=== PATIENT | female | born 2000 | race Caucasian/White ===

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

== ENCOUNTER 2023-06-02 19:02 | Emergency (ER) | payer SELFPAY ==
[2023-06-02 19:07] VITALS: BP 115/69; PULSE 64; RESP 16; TEMP 37.2; O2SAT 99; BMI 18.2
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
== END 2023-06-02 19:17 | disposition home or self-care (01) ==
LOC: HO.ED 19:14
PROVIDERS: Emergency Provider Student in an Organized Health Care Education/Training Program; PCP Internal Medicine
DX: Z04.1 Encounter for examination and observation following transport accident (principal); M54.50 Low back pain, unspecified
CPT/HCPCS: 99281; 99283

== ENCOUNTER 2024-03-02 02:09 | Emergency (ER) | payer OTHER, SELFPAY ==
--- NOTE | ~2024-03-02 | CT_ITS ---
EXAMINATION: CT ABDOMEN AND PELVIS WITHOUT CONTRAST CLINICAL INFORMATION: Left flank pain. COMPARISON: None available. TECHNIQUE: Multidetector volumetric imaging was performed from the superior aspect of the liver through the pubic symphysis. Sagittal and coronal reformatted images were obtained on the technologist's workstation. This CT examination was performed using dose optimization techniques as appropriate, variously including the following: *Automated exposure control *Adjustment of mA and/or kV according to patient size (this includes techniques or standardized protocols for targeted exams where dose is matched to indication/reason for exam; i.e. extremities or head) *Use of iterative reconstruction technique DLP: 283 mGy-cm FINDINGS: LUNG BASES: The visualized lung bases are unremarkable. LIVER, GALLBLADDER, AND BILIARY TREE: The liver is normal in size, shape, and attenuation. No focal hepatic lesion or biliary ductal dilatation is present. The gallbladder is unremarkable with no evidence of radiopaque gallstones, gallbladder wall thickening, or obvious pericholecystic inflammatory changes. PANCREAS: Unremarkable. SPLEEN: Unremarkable. ADRENAL GLANDS: Unremarkable. KIDNEYS AND URETERS: Left collecting system: Two (2) vague punctate 1 mm densities are present in the interpolar segment of the left kidney and are suspicious for renal calculi. No left hydronephrosis identified. Minimal reticulation of the left perinephric fat is present. No left-sided ureteral calculi visualized. Right collecting system: A 2 mm x 3 mm calculus is present in the interpolar segment of the right kidney. A 2 mm punctate calculus is present in the inferior right renal pelvis. No right-sided hydronephrosis or perinephric inflammatory changes noted. No right-sided ureterectasis. BLADDER: Decompressed. GASTROINTESTINAL TRACT: The appendix is not visualized and may be obscured from visualization by a paucity of retroperitoneal fat and close approximation of the cecum to adjacent structures within the pelvis. No pericecal inflammatory changes noted. Normal appearance of the terminal ileum. No free intraperitoneal fluid or gas collections identified. ABDOMINAL WALL: No significant hernia is appreciated. LYMPH NODES: Normal. VASCULAR: Unremarkable. PELVIC VISCERA: Unremarkable. OSSEOUS STRUCTURES: A transitional vertebral body is present at the lumbosacral junction may represent L5 with partial bilateral sacralization. CT/CT abdomen pelvis wo IV con IMPRESSION: 1. Mild left perinephric inflammatory changes. No left-sided obstructing urolithiasis. Two (2) 1 mm punctate nonobstructing calculi are present within the left renal pelvis. The left perinephric inflammatory changes may be secondary to a recently passed renal calculus. 2. Punctate nonobstructing calculi within the right renal pelvis, the largest measuring 2 mm x 3 mm. No right-sided hydronephrosis. 3. The appendix is not visualized and may be obscured from visualization by a paucity of retroperitoneal fat and close approximation of the cecum to adjacent structures within the pelvis. No pericecal inflammatory changes noted. Normal appearance of the terminal ileum. 4. Transitional vertebral body at the lumbosacral junction which may represent L5 with partial bilateral sacralization. Fleischner guidelines were followed.
[2024-03-02 03:06] VITALS: BP 126/88; PULSE 77; RESP 16; TEMP 36.9; O2SAT 99; BMI 19.9
[2024-03-02 03:44] LABS: Appearance Urine Turbid; Color Urine Orange; Glucose Urine UA Negative (Negative); Leukocyte Esterase Urine Small (1+) (Negative); Nitrite Urine Negative (Negative); PH 5.5 (5.0-9.0); Specific Gravity - Urine 1.015 (1.005-1.025); UMIC TRIGGER UACC YES; Urine Blood Large (3+) (Negative); Urine Ketones Negative (Negative); Urine Protein 30 (1+) mg/dL (Neg-Trace)
[2024-03-02 03:45] LABS: UPreg QC Valid YES; Urine Pregnancy NEGATIVE (NEGATIVE)
--- NOTE | 2024-03-02 03:45 | MHC.EDTECH ---
Patient was brought into triage area,urine sample collected and sent to lab.
[2024-03-02 03:52] LABS: Bacteria Urine None Seen (None Seen); Hyaline Casts Urine >20 /LPF (0-2); Other Crystals Urine Present; RBC Urine >20 /HPF (0-2); UACC Culture Trigger YES
[2024-03-02 06:19] VITALS: BP 139/87; PULSE 76; RESP 16; TEMP 36.5; O2SAT 100
[2024-03-02 06:22] LABS: MANUAL DIFF FLAG NO
[2024-03-02 06:24] LABS: Basophils Percent Auto 0.2 % (0-2); Eosinophils Percent Auto 0.2 % (0-4); Hematocrit 36.2 % (37.0-47.0); Hemoglobin 11.8 g/dl (12.0-16.0); Imm Gran Abs Auto 0.04 X10*3/uL (0.00-0.03); Imm Gran Pct Auto 0.4 % (0.0-0.4); Lymphocytes Absolute Auto 1.2 X10*3/uL (1.2-4.9); Lymphocytes Percent Auto 11.4 % (20-40); Mean Corpuscular HGB Conc 32.6 g/dl (31.0-35.0); Mean Corpuscular Hemoglobin 27.2 pg (27.0-33.0); Mean Corpuscular Volume 83.4 fL (80.0-98.0); Mean Platelet Volume 10.2 fL (9.4-12.3); Monocytes Absolute Auto 0.7 X10*3/uL (0.1-1.2); Monocytes Percent Auto 6.4 % (2-11); Neutrophils Absolute Auto 8.7 x10*3/uL (2.0-8.3); Neutrophils Percent Auto 81.4 % (45-73); Platelet Count 234 X10*3/uL (160-400); Red Blood Count 4.34 X10*6/uL (4.20-5.50); White Blood Count 10.7 X10*3/uL (4.8-10.8)
[2024-03-02 06:35] LABS: Anion Gap 14 (12-20); Blood Urea Nitrogen 16 mg/dL (9-16); Carbon Dioxide 22 mmol/L (22-29); Chloride 110 mmol/L (96-108); Creatinine Clr Calc Pharmacy 70.8; Estimated Glomerular Filt Rate > 60; Glucose Random 97 mg/dL (60-115); Potassium 3.9 mmol/L (3.3-5.1); Sodium 142 mmol/L (135-145)
--- NOTE | 2024-03-02 06:49 | ED.ABDPAIN ---
HPI - Abdominal Pain General Chief Complaint: Back Pain/Injury Stated Complaint: left side back pain Time Seen by Provider: 03/02/24 05:46 Source: patient Mode of arrival: ambulatory Limitations: no limitations History of Present Illness ED Provider: ANN MARIE ZAMAN narrative: 23 yo female no sig PMH here with c/o L flank pain starting at 7pm abrupt onset atraumatic no n/v fevers able to urinate. This has never happened before cannot get comfortable. MD elicited complaint: flank pain Pertinent past history: none Onset (ago): hour(s) (7pm) Pain Consistency: constant Location: L flank Severity: moderate Quality: stabbing Radiation: none Migration to: no migration Exacerbating factors: nothing Relieving factors: nothing Associated symptoms: denies other symptoms Related Data Previous Rx's ?Medication ?Instructions ?Recorded norethindrone acetate 1.5 1 tab PO DAILY 28 days #28 tabs 06/16/20 mg-ethinyl estradiol 30 mcg tablet (Microgestin) cyclobenzaprine 5 mg tablet 5 mg PO TID PRN muscle spasm 7 06/02/23 days #21 tabs naproxen 500 mg tablet 500 mg PO BID 7 days #14 tabs 06/02/23 ondansetron 4 mg disintegrating 4 mg PO Q8H PRN nausea and 03/02/24 tablet vomiting #20 tabs Allergies Allergy/AdvReac Type Severity Reaction Status Date / Time No Known Allergies Allergy Verified 03/02/24 03:09 [No Known Allergies*] Review of Systems Review of Systems Constitutional : No Weight loss, No Fever, No Chills, ENT/Mouth : No Hearing loss, No Ear Pain, No Nasal Congestion, No Sinus Pain, No Hoarseness, No sore throat, No Rhinorrhea, No Swallowing Difficulty Cardiovascular : No Chest Pain, No SOB Respiratory : No Cough, No Dyspnea Gastrointestinal : No Nausea, No Vomiting, No Diarrhea, No abdominal Pain, No Hematochezia, No Melena Genitourinary : No Dysuria, No Urinary Frequency, No Hematuria, No Urinary Incontinence, Musculoskeletal : positive flank pain Skin : No Skin Lesions, No rash Neuro : No Weakness, No Numbness, No Paresthesias, no loss of bowel or bladder incontinence, no saddle anesthesia All other systems reviewed and are negative PMFSH Past Medical History Attestation statement: The following information was validated with the patient. Source: old records reviewed Medical History No pertinent past medical history Social History Social History (Updated 03/02/24 @ 06:55 by Padmini Ding DO) Alcohol intake: never Patient Tobacco Use Status: Never used Tobacco Advance Directives: No Advance Directives Information Provided: Yes Do you have a plan to hurt others: No Plan Physical Exam ED Vital Signs: Vital Signs - 24 hr 03/02/24 03:06 03/02/24 06:19 Temperature 98.4 F 97.7 F Pulse Rate 77 76 Respiratory Rate 16 16 Blood Pressure 126/88 139/87 Pulse Oximetry 99 100 Oxygen Delivery Method Room Air Room Air BMI result Body Mass Index 19.9 Appearance: Alert. Oriented X3. No acute distress. Eyes: Pupils equal, round and reactive to light. ENT: Pharynx normal. Neck: Normal inspection. Neck supple. CVS: Normal heart rate and rhythm. Pulses normal. Respiratory: No respiratory distress. Breath sounds normal. Abdomen: Soft and nontender. L mild CVA ttp Skin: Skin warm and dry. Normal skin color. Normal skin turgor. Extremities: No lower extremity edema. No calf ttp Neuro: Oriented X 3. No motor deficit. No sensory deficit. Medical Decision Making Medical Decision Making [facility] Narrative: 23 yo female no sig PMH abrupt onset L flank pain no fevers, n/v no hematuria able to urinate at this time will obtain basic labs, hydrate, IVF, IV toradol for pain. CT scan first time possible renal colic. Differential Diagnosis Differential Diagnoses: The differential diagnosis associated with the presentation includes stone, strain, MSK pain Admission/Observation Consideration of admission/observation: Escalation of care including admission/observation considered pain well controlled suspect passed stone Lab Data [facility] Lab Attestation statement: I reviewed the patient's lab results. 03/02/24 06:18 03/02/24 06:18 Labs: Lab Results 03/02/24 03/02/24 Range/Units 03:36 06:18 WBC 10.7 (4.8-10.8) X10*3/uL RBC 4.34 (4.20-5.50) X10*6/uL Hgb 11.8 L (12.0-16.0) g/dl Hct 36.2 L (37.0-47.0) % MCV 83.4 (80.0-98.0) fL MCH 27.2 (27.0-33.0) pg MCHC 32.6 (31.0-35.0) g/dl RDW 13.0 (11.0-16.0) % Plt Count 234 (160-400) X10*3/uL MPV 10.2 (9.4-12.3) fL Immature Gran % (Auto) 0.4 (0.0-0.4) % Neut % (Auto) 81.4 H (45-73) % Lymph % (Auto) 11.4 L (20-40) % [place] % (Auto) 6.4 (2-11) % Eos % (Auto) 0.2 (0-4) % Baso % (Auto) 0.2 (0-2) % Lymph # (Auto) 1.2 (1.2-4.9) X10*3/uL [place] # (Auto) 0.7 (0.1-1.2) X10*3/uL Eos # (Auto) 0.0 (0.0-0.4) X10*3/uL Baso # (Auto) 0.0 (0.0-0.2) X10*3/uL Abs Immat Gran (auto) 0.04 H (0.00-0.03) X10*3/uL Absolute Neuts (auto) 8.7 H (2.0-8.3) x10*3/uL Absolute Nucleated RBC 0.000 (0.0-0.012) X10*3/uL Nucleated RBC % (auto) 0.0 (0.0-0.2) /100WBC Sodium 142 (135-145) mmol/L Potassium 3.9 (3.3-5.1) mmol/L Chloride 110 H (96-108) mmol/L Carbon Dioxide 22 (22-29) mmol/L Anion Gap 14 (12-20) BUN 16 (9-16) mg/dL Creatinine 0.94 (0.5-1.4) mg/dL Estim Creat Clear Calc 70.8 Estimated GFR > 60 Random Glucose 97 (60-115) mg/dL Calcium 10.0 (8.4-10.2) mg/dL Urine Color [place] A Urine Appearance Turbid Urine pH 5.5 (5.0-9.0) Ur Specific [place] 1.015 (1.005-1.025) Urine Protein 30 (1+) H (Neg-Trace) mg/dL Urine Glucose (UA) Negative (Negative) mg/dL Urine Ketones Negative (Negative) mg/dL Urine Blood Large (3+) H (Negative) Urine Nitrite Negative (Negative) Ur Leukocyte Esterase Small (1+) H (Negative) Urine RBC >20 H (0-2) /HPF Urine WBC 6-10 H (0-5) /HPF Ur Squamous Epith Cells 3-5 (0-2) /HPF Other Crystals Present Urine Bacteria None Seen (None Seen) Hyaline Casts >20 (0-2) /LPF Urine Test NEGATIVE (NEGATIVE) Independent Interpretation I performed an independent interpretation of an: CT Scan Independent Historian Clinical information obtained from an independent historian. History obtained from or confirmed by: Other (family) Prescription Management I considered prescription management with: Pain Medication and Other Discharge Plan Discharge Clinical Impression: Left flank pain, Renal colic on left side Patient Disposition: Home, Self-Care Instructions: Renal Colic (ED), Flank Pain (ED) Additional Instructions: suspect passed stone based off exam at this time return for any worsening pain, fevers, vomiting or any other concerns stay hydrated drink at least 40 to 60 ounces of water a day follow up with urologist take tylenol or motrin if not feeling good for pain CT/CT abdomen pelvis wo IV con IMPRESSION: 1. Mild left perinephric inflammatory changes. No left-sided obstructing urolithiasis. Two (2) 1 mm punctate nonobstructing calculi are present within the left renal pelvis. The left perinephric inflammatory changes may be secondary to a recently passed renal calculus. 2. Punctate nonobstructing calculi within the right renal pelvis, the largest measuring 2 mm x 3 mm. No right-sided hydronephrosis. 3. The appendix is not visualized and may be obscured from visualization by a paucity of retroperitoneal fat and close approximation of the cecum to adjacent structures within the pelvis. No pericecal inflammatory changes noted. Normal appearance of the terminal ileum. 4. Transitional vertebral body at the lumbosacral junction which may represent L5 with partial bilateral sacralization. Prescriptions: New ondansetron 4 mg tablet,disintegrating 4 mg PO Q8H PRN (Reason: nausea and vomiting) Qty: 20 0RF No Action cyclobenzaprine 5 mg tablet 5 mg PO TID PRN (Reason: muscle spasm) 7 Days Qty: 21 0RF naproxen 500 mg tablet 500 mg PO BID 7 Days Qty: 14 0RF norethindrone ac-eth estradiol [Microgestin 1.5/30 (21)] 1.5-30 mg-mcg tablet 1 tab PO DAILY 28 Days Qty: 28 5RF Referrals: Wilder Sanchez MD [Physician] - (urology call to follow up in future) Stand Alone Forms: Work/School Release Print Language: [place]
[2024-03-02 07:23] VITALS: BP 136/80; PULSE 80; TEMP 36.7; O2SAT 100
[2024-03-02 07:34] VITALS: BP 136/80; PULSE 80; RESP 16; TEMP 36.7; O2SAT 100
== END 2024-03-02 07:34 | disposition home or self-care (01) ==
PROVIDERS: Emergency Provider Emergency Medicine
DX: N23 Unspecified renal colic (principal); M54.50 Low back pain, unspecified; Z79.899 Other long term (current) drug therapy
CPT/HCPCS: 36415; 74176; 80048; 81001; 81025; 85025; 87086; 99283; 99284